=== PATIENT | female | born 1960 | race African-American/Black ===

== ENCOUNTER 2022-06-10 17:51 | Emergency (ER) | payer OTHER ==
[~2022-06-10] VITALS: Ht 154.9 cm; Wt 73.0 kg
[2022-06-10] MEDS ORDERED: IBUPROFEN 600MG TABLET PO ONE (18:30)
[2022-06-10] MEDS ORDERED: IBUPROFEN 600MG TABLET PO NR (21:45)
[2022-06-10] MEDS ORDERED: IBUP-2029 MT (21:50)
[2022-06-10 22:15] VITALS: BP 142/92
== END 2022-06-10 22:21 | disposition home or self-care (01) ==
LOC: ER 17:51
DX: S09.8XXA Other specified injuries of head, initial encounter (principal); S00.83XA Contusion of other part of head, initial encounter; I10 Essential (primary) hypertension; Y08.89XA Assault by other specified means, initial encounter; Y93.9 Activity, unspecified; Y92.9 Unspecified place or not applicable; Z96.649 Presence of unspecified artificial hip joint
CPT/HCPCS: 70486; 99284